=== PATIENT | female | born 1965 | race Caucasian/White ===

== ENCOUNTER 2021-12-26 17:22 | Emergency (ER) | payer OTHER ==
[~2021-12-26] VITALS: Ht 162.6 cm; Wt 77.1 kg
[~2021-12-26 17:22] MED LIST: FISH OIL 1,0001 EAC1 PO; Z.0.GLUCOPHAGE500 MG; Z.0.PRILOSEC40 MG
[2021-12-26] MEDS ORDERED: KETOROLAC TROMETHAMINE 60 MG/2 ML VIAL IM ONE (17:45)
[2021-12-26] MEDS ORDERED: NAPROSYN500 MG PO (19:01)
[2021-12-26] MEDS ORDERED: HYDROCODON-ACE1 EAC9 PO (19:01)
[2021-12-26] MEDS ORDERED: CYCLOBENZAPRINE10 MG PO (19:01)
[2021-12-26 20:18] VITALS: BP 106/74
== END 2021-12-26 20:25 | disposition home or self-care (01) ==
LOC: ER 17:35
DX: S00.81XA Abrasion of other part of head, initial encounter (principal); S16.1XXA Strain of muscle, fascia and tendon at neck level, initial encounter; S29.012A Strain of muscle and tendon of back wall of thorax, initial encounter; V53.5XXA Driver of pick-up truck or van injured in collision with car, pick-up truck or van in traffic accident, initial encounter; Y92.488 Other paved roadways as the place of occurrence of the external cause; I10 Essential (primary) hypertension; E11.9 Type 2 diabetes mellitus without complications; K21.9 Gastro-esophageal reflux disease without esophagitis
CPT/HCPCS: 70450; 72070; 72125; 99284